=== PATIENT | male | born 1975 | race African-American/Black ===

== ENCOUNTER 2019-01-07 10:07 | Emergency (ER) | payer OTHER ==
[2019-01-07 10:18] VITALS: BP 102/51; PULSE 70; BMI 35.9
[2019-01-07] MEDS ORDERED: KETOROLAC TROMETHAMINE 60 MG/2 ML VIAL IM ONE (10:37)
[2019-01-07] MEDS ORDERED: KETOROLAC TROMETHAMINE 60 MG/2 ML VIAL ONE (10:39)
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
== END 2019-01-07 10:53 | disposition home or self-care (01) ==
LOC: JERFT 10:07
PROC: 3E0233Z Introduction of Anti-inflammatory into Muscle, Percutaneous Approach (ICD-10-PCS; principal; 2019-01-07)
DX: S39.012A Strain of muscle, fascia and tendon of lower back, initial encounter (principal); V49.59XA Passenger injured in collision with other motor vehicles in traffic accident, initial encounter; Y92.414 Local residential or business street as the place of occurrence of the external cause; Y93.89 Activity, other specified; Y99.8 Other external cause status
CPT/HCPCS: 99282-25

== ENCOUNTER 2019-05-27 14:11 | Inpatient (IN) | payer OTHER ==
[2019-05-27] MEDS ORDERED: SODIUM CHLORIDE 1,000 ML IV SCH ×2 (14:30→19:00)
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
[2019-05-27 14:41] LABS: BASO % 0.9 % (0-2.0); HEMATOCRIT 51.2 % (35.4-49); HEMOGLOBIN 17.2 GM/dL (11.7-16.9); LYMPH % 22.5 % (8-40); MCHC 33.5 g/dl (32.0-35.9); MEAN CELL VOLUME 92.4 fl (80-96); MEAN PLT VOLUME 10.9 fl (7.5-11.1); MONO % 8.9 % (3.8-10.2); NEUT % 67.7 % (42.8-82.8); PLATELET COUNT 197 K/MM3 (134-434); RBC 5.54 M/mm3 (4.00-5.60); RDW 13.8 % (11.9-15.9); WHITE BLOOD COUNT 14.3 K/mm3 (4.0-10.0)
[2019-05-27 14:57] LABS: INR 1.03 (0.83-1.09); PROTHROMBIN TIME (PATIENT) 12.1 SEC (9.7-13.0)
[2019-05-27] MEDS ORDERED: ASPIRIN 81 MG CHEWABLE TABLETS PO ONE (14:58)
[2019-05-27] MEDS ORDERED: ACETAMINOPHEN 1000 MG/100 ML VIAL (NON FORMULARY) IVPB ONE (14:58)
[2019-05-27 14:59] LABS: ACTIVATED PTT 36.4 SECONDS (25.2-36.5)
[2019-05-27 15:08] LABS: ALBUMIN 4.4 g/dl (3.4-5.0); BILIRUBIN,TOTAL 0.7 mg/dL (0.2-1); BLOOD UREA NITROGEN 8.7 mg/dL (7-18); CALCIUM 9.9 mg/dL (8.5-10.1); CREATININE 1.1 mg/dL (0.55-1.3); POTASSIUM 4.2 mmol/L (3.5-5.1)
[2019-05-27] MEDS ORDERED: ATORVASTATIN CA 80 MG TABLET (FP) PO ONE (15:11)
[2019-05-27 15:13] LABS: HDL CHOLESTEROL 49 mg/dL (40-60); LDL CHOLESTEROL (ONLY SJRH) 161 mg/dL (5-100); TRIGLYCERIDES 102 mg/dL (0-150)
[2019-05-27] MEDS ORDERED: ASPIRIN 325 MG ENTERIC COATED TABLET (FP) ONE (15:39)
[2019-05-27] MEDS ORDERED: ATORVASTATIN CA 80 MG TABLET (FP) ONE (15:40)
[2019-05-27] MEDS ORDERED: ACETAMINOPHEN INJECTION 100 ML IVPB ONE (15:40)
--- NOTE | 2019-05-27 17:30 | EKG ---
Test Reason : Blood Pressure : / mmHG Vent. Rate : 097 BPM Atrial Rate : 100 BPM P-R Int : 166 ms QRS Dur : 104 ms QT Int : 348 ms P-R-T Axes : 051 069 037 degrees QTc Int : 441 ms NORMAL SINUS RHYTHM NORMAL ECG NO PREVIOUS ECGS AVAILABLE Confirmed by DASIA NGUYEN MD ([id number]) on 05/27/2019 5:30:16 PM Referred By: Confirmed By:DASIA NGUYEN MD
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
[2019-05-27 18:49] VITALS: BMI 35.8
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
[2019-05-27] MEDS ORDERED: ACETAMINOPHEN 1000 MG/100 ML VIAL (NON FORMULARY) IVPB PRN (20:30)
[2019-05-27] MEDS: HEPARIN NA (PORCINE) 5,000 UNITS/ML 1ML VIAL SQ SCH (21:58)
[2019-05-27] MEDS ORDERED: ATORVASTATIN CA 40 MG TABLET (FP) PO SCH (22:00)
[2019-05-27] MEDS ORDERED: AMITRIPTYLINE HCL 25 MG TABLET (FP) PO SCH (22:00)
[2019-05-28 09:43] VITALS: BP 140/88; PULSE 84; TEMP 98.7
[2019-05-28] MEDS: HEPARIN NA (PORCINE) 5,000 UNITS/ML 1ML VIAL SQ SCH (09:46)
[2019-05-28] MEDS ORDERED: ASPIRIN COATED 81 MG TABLET.EC PO SCH (10:00)
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
--- NOTE | 2019-05-28 17:42 | DS ---
Physical Examination Vital Signs: Vital Signs Temperature 98.7 F 05/28/19 09:29 Pulse Rate 84 05/28/19 09:29 Respiratory Rate 20 05/28/19 09:29 Blood Pressure 140/88 05/28/19 09:29 O2 Sat by Pulse Oximetry (%) 99 05/28/19 09:29 Labs: CBC, BMP 05/27/19 14:20 05/27/19 14:20 Discharge Summary Problems reviewed: Yes Reason For Visit: TIA Condition: Stable - Instructions Referrals: Carlos Eduardo Pryor [Primary Care Provider] - Disposition: AGAINST MEDICAL ADVICE - Home Medications Comprehensive Discharge Medication List: Ambulatory Orders NK [No Known Home Medication] 05/27/19
== END 2019-05-28 09:47 | disposition left against medical advice (07) | DRG 47 ==
LOC: JER 14:11 → JERBED 17:34 → J4W 18:30
PROVIDERS: ADMIT Internal Medicine; ATTEND Internal Medicine
DX: G45.9 Transient cerebral ischemic attack, unspecified (principal); I10 Essential (primary) hypertension; E78.5 Hyperlipidemia, unspecified; I69.354 Hemiplegia and hemiparesis following cerebral infarction affecting left non-dominant side; G43.909 Migraine, unspecified, not intractable, without status migrainosus; F32.9 Major depressive disorder, single episode, unspecified
CPT/HCPCS: 36415; 70450-TC; 70496-TC; 80053; 82465; 82550; 82553; 82962; 83718; 83721; 84478; 84484; 85025; 85610; 85730; 86850; 86900; 86901; 93005; 93010; 99285-25; J0131; J1644; Q9967

== ENCOUNTER 2021-03-04 18:12 | Emergency (ER) | payer OTHER ==
[2021-03-04 18:20] VITALS: BP 151/81; PULSE 80; TEMP 98.1; BMI 33.8
[2021-03-04 19:44] LABS: EPI CELLS 4 /uL (0-25.1); HYALINE CASTS 1 /uL (0-3.1); PH,URINE 5.5 (5.0-8.0); URINE APPEARANCE CLEAR; URINE BACTERIA 38 /uL (0-1359); URINE BILIRUBIN NEGATIVE (NEGATIVE); URINE COLOR YELLOW; URINE GLUCOSE (UA) NEGATIVE (NEGATIVE); URINE KETONE NEGATIVE (NEGATIVE); URINE LEUK ESTERASE 1+ (NEGATIVE); URINE NITRITE NEGATIVE (NEGATIVE); URINE PROTEIN NEGATIVE (NEGATIVE); URINE RBC 5 /uL (0-23.9); URINE UROBILINOGEN 0.2 mg/dL (0.2-1.0); URINE WBC 50 /uL (0-25.8)
== END 2021-03-04 19:21 | disposition home or self-care (01) ==
LOC: JERFT 18:12
DX: S63.502A Unspecified sprain of left wrist, initial encounter (principal); W19.XXXA Unspecified fall, initial encounter
CPT/HCPCS: 36415; 73110-TC-LT-FY; 81003; 87086; 87491; 87591; 99284-25

== ENCOUNTER 2021-12-01 17:09 | Emergency (ER) | payer OTHER ==
[2021-12-01 17:37] VITALS: TEMP 98.1; BMI 34.0
[2021-12-01 18:59] VITALS: BP 134/88; PULSE 16
[2021-12-01] MEDS ORDERED: ACETAMINOPHEN 500 MG TABLET (FP) PO ONE (19:35)
[2021-12-01] MEDS ORDERED: DIPHTH,PERTUSS(ACELL),TET 0.5 ML DISP.SYRIN IM ONE ×2 (19:35→22:16)
[2021-12-01] MEDS ORDERED: RABIES IMMUNE GLOBULIN 300 UNITS/1 ML VIAL IM ONE (19:39)
[2021-12-01] MEDS ORDERED: RABIES VACCINE (PCEC)/PF 2.5 UNIT/VIAL IM ONE ×2 (19:39→22:17)
[2021-12-01] MEDS ORDERED: ACETAMINOPHEN 325 MG TABLET (FP) ONE (20:24)
== END 2021-12-01 23:07 | disposition left against medical advice (07) ==
LOC: JERFT 17:09 → JER 17:09
PROC: 3E0234Z Introduction of Serum, Toxoid and Vaccine into Muscle, Percutaneous Approach (ICD-10-PCS; principal; 2021-12-01)
PROC: 3E0234Z Introduction of Serum, Toxoid and Vaccine into Muscle, Percutaneous Approach (ICD-10-PCS; 2021-12-01)
DX: S30.873A Other superficial bite of scrotum and testes, initial encounter (principal); S51.851A Open bite of right forearm, initial encounter; W54.0XXA Bitten by dog, initial encounter
CPT/HCPCS: 76870-TC; 90471; 90715; 99284-25

== ENCOUNTER 2023-04-13 20:36 | Emergency (ER) | payer OTHER ==
[2023-04-13 20:43] VITALS: BP 127/74; PULSE 77; RESP 18; TEMP 98.7; BMI 34.8
[2023-04-13] MEDS ORDERED: KETOROLAC TROMETHAMINE 15 MG/ML VIAL IM ONE (21:52)
[2023-04-13] MEDS ORDERED: ONDANSETRON *ODT* 4 MG TABLET SL ONE (21:52)
[2023-04-13] MEDS ORDERED: LIDOCAINE 5% TOPICAL PATCH TP ONE (21:52)
[2023-04-13] MEDS ORDERED: ONDANSETRON *ODT* 4 MG TABLET ONE (21:55)
[2023-04-13] MEDS ORDERED: LIDOCAINE 4% PATCH TP ONE (21:55)
[2023-04-13] MEDS ORDERED: KETOROLAC TROMETHAMINE 30 MG/1 ML VIAL ONE (21:55)
[2023-04-13] MEDS ORDERED: LIDOCAINE PATCH REMOVAL MC SCH (22:00)
[2023-04-13 22:31] LABS: EPI CELLS 11 /uL (0-25.1); HYALINE CASTS 0 /uL (0-3.1); PH,URINE 6.5 (5.0-8.0); URINE APPEARANCE CLEAR; URINE BACTERIA 48 /uL (0-1359); URINE BILIRUBIN NEGATIVE (NEGATIVE); URINE COLOR DK YELLOW; URINE GLUCOSE (UA) NEGATIVE (NEGATIVE); URINE KETONE TRACE (NEGATIVE); URINE LEUK ESTERASE 1+ (NEGATIVE); URINE NITRITE NEGATIVE (NEGATIVE); URINE PROTEIN NEGATIVE (NEGATIVE); URINE RBC 27 /uL (0-23.9); URINE UROBILINOGEN 4.0 E.U/dl mg/dL (0.2-1.0); URINE WBC 40 /uL (0-25.8)
[2023-04-13 22:47] LABS: THROAT:GRP A STREP NOT DETECTED (NOTDETECTED)
== END 2023-04-13 23:10 | disposition home or self-care (01) ==
LOC: JER 20:36 → JERFT 20:36
PROC: 3E0233Z Introduction of Anti-inflammatory into Muscle, Percutaneous Approach (ICD-10-PCS; principal; 2023-04-13)
DX: J02.9 Acute pharyngitis, unspecified (principal); R19.7 Diarrhea, unspecified; M54.50 Low back pain, unspecified; R51.9 Headache, unspecified; H57.12 Ocular pain, left eye; B34.9 Viral infection, unspecified; Z20.822 Contact with and (suspected) exposure to COVID-19
CPT/HCPCS: 0241U-QW; 81003; 87086; 87651; 99284-25; Q0162

== ENCOUNTER 2023-05-06 17:19 | Emergency (ER) | payer OTHER ==
[2023-05-06 17:46] VITALS: BP 126/72; PULSE 79; RESP 18; TEMP 98.5; BMI 34.5
[2023-05-06] MEDS ORDERED: KETOROLAC TROMETHAMINE 30 MG/1 ML VIAL IM ONE (18:48)
[2023-05-06] MEDS ORDERED: DEXAMETHASONE SOD PHOSPHATE 10 MG/1 ML VIAL IVPUSH ONE (18:49)
[2023-05-06] MEDS ORDERED: ALBUTEROL SO4 2.5/IPRATROPIUM 0.5 INH SOL 3 ML VIAL.NEB. NEB ONE ×2 (18:59→20:00)
[2023-05-06] MEDS ORDERED: DEXAMETHASONE SOD PHOSPHATE 10 MG/1 ML VIAL ONE (20:00)
[2023-05-06] MEDS ORDERED: DEXAMETHASONE SOD PHOSPHATE 10 MG/1 ML VIAL IM ONE (20:02)
[2023-05-06 20:23] LABS: BASO % 0.4 % (0-2.0); EOS % 0.6 % (0-4.5); HEMATOCRIT 48.9 % (35.4-49); HEMOGLOBIN 16.4 GM/dL (11.7-16.9); LYMPH % 41.2 % (8-40); MCH 30.8 pg (25.7-33.7); MCHC 33.6 g/dl (32.0-35.9); MEAN CELL VOLUME 91.6 fl (80-96); MEAN PLT VOLUME 11.4 fl (7.5-11.1); MONO % 6.9 % (3.8-10.2); NEUT % 50.9 % (42.8-82.8); PLATELET COUNT 191 10^3/uL (134-434); RBC 5.34 M/mm3 (4.00-5.60); RDW 13.7 % (11.9-15.9); WHITE BLOOD COUNT 12.5 K/mm3 (4.0-10.0)
[2023-05-06 20:39] LABS: POTASSIUM 4.2 mmol/L (3.5-5.1)
[2023-05-06 20:42] LABS: CALCIUM 9.4 mg/dL (8.5-10.1)
[2023-05-06 20:43] LABS: ALBUMIN 4.4 g/dl (3.4-5.0); BLOOD UREA NITROGEN 12.6 mg/dL (7-18)
[2023-05-06 20:46] LABS: CREATININE 1.1 mg/dL (0.55-1.3)
[2023-05-06 20:47] LABS: BILIRUBIN,TOTAL 0.5 mg/dL (0.2-1); TOT PROT 7.9 g/dl (6.4-8.2)
== END 2023-05-06 21:21 | disposition home or self-care (01) ==
LOC: JER 17:19
PROC: 3E023GC Introduction of Other Therapeutic Substance into Muscle, Percutaneous Approach (ICD-10-PCS; principal; 2023-05-06)
PROC: 3E0F7GC Introduction of Other Therapeutic Substance into Respiratory Tract, Via Natural or Artificial Opening (ICD-10-PCS; 2023-05-06)
DX: R07.89 Other chest pain (principal); R09.1 Pleurisy; M25.512 Pain in left shoulder
CPT/HCPCS: 36415; 71046-TC-FY; 80053; 84484; 85025; 85379; 93005; 93010; 99285-25; J1100

== ENCOUNTER 2025-03-05 15:51 | Emergency (ER) | payer OTHER ==
[2025-03-05 16:00] VITALS: BP 128/82; PULSE 77; RESP 22; TEMP 98.1; BMI 33.0
[2025-03-05] MEDS ORDERED: KETOROLAC TROMETHAMINE 30 MG/1 ML VIAL ONE (16:37)
[2025-03-05] MEDS ORDERED: LIDOCAINE 5% TOPICAL PATCH ONE (16:42)
[2025-03-05] MEDS: LIDOCAINE 5% TOPICAL PATCH TP ONE (16:45)
[2025-03-05] MEDS: KETOROLAC TROMETHAMINE 30 MG/1 ML VIAL IM ONE (16:46)
[2025-03-05] MEDS ORDERED: LIDOCAINE PATCH REMOVAL MC SCH (22:00)
== END 2025-03-05 17:14 | disposition home or self-care (01) ==
LOC: JERFT 15:51
PROC: 3E0233Z Introduction of Anti-inflammatory into Muscle, Percutaneous Approach (ICD-10-PCS; principal; 2025-03-05)
DX: M54.50 Low back pain, unspecified (principal); G89.29 Other chronic pain
CPT/HCPCS: 99284-25